=== PATIENT | female | born 1940 | race Caucasian/White ===

== ENCOUNTER 2017-01-31 05:40 | Outpatient (CLI) | payer MEDICARE, MEDICAID ==
[~2017-01-31] VITALS: Ht 172.7 cm; Wt 68.0 kg
[~2017-01-31 05:40] MED LIST: ASPI-586 PO; CARV25TA PO; L.AC1CAP6 PO; OXYC-197 PO; PANT40TA3 PO; SPIR25TA3 PO; SUCR1TAB PO; TIZA4TAB3 PO
[2017-01-31] MEDS ORDERED: CHOL200025 PO (10:16)
[2017-01-31] MEDS ORDERED: CNC1KV IJ (10:16)
[2017-01-31] MEDS ORDERED: MULT-618 PO (10:16)
[2017-01-31] MEDS ORDERED: CARV25TA PO (10:16)
[2017-01-31] MEDS ORDERED: ATOR20TA66 PO (10:16)
== END 2017-01-31 10:25 ==
LOC: PREOP 05:40
PROVIDERS: ATTEND Surgery
DX: Z01.818 Encounter for other preprocedural examination (principal); R10.13 Epigastric pain; Z12.11 Encounter for screening for malignant neoplasm of colon; Z87.11 Personal history of peptic ulcer disease

== ENCOUNTER 2017-02-04 10:16 | Day surgery (SDC) | payer MEDICARE, MEDICAID ==
[~2017-02-04] VITALS: Ht 172.7 cm; Wt 68.0 kg
[~2017-02-04 10:16] MED LIST changes: +ATOR20TA66 PO; +CHOL200025 PO; +CNC1KV IJ; +MULT-618 PO
[2017-02-04] MEDS ORDERED: MIDAZOLAM 2 MG/2 ML (VERSED) VIAL IVP PRN (10:30)
[2017-02-04] MEDS ORDERED: NS IV 500 ML 500 ML IV ONE (10:30)
[2017-02-04] MEDS ORDERED: NS IV 500 ML 500 ML ONE (10:32)
[2017-02-04 10:50] VITALS: BP 106/55
[2017-02-04] MEDS ORDERED: fentaNYL INJECTION 100 MCG/2 ML AMP ONE ×2 (13:27)
[2017-02-04] MEDS ORDERED: MIDAZOLAM 2 MG/2 ML (VERSED) VIAL ONE ×4 (13:28)
[2017-02-04] MEDS ORDERED: HURRICAINE EXT TUBE (BENZOCAINE) ONE (13:28)
[2017-02-04] MEDS: fentaNYL INJECTION 100 MCG/2 ML AMP IVP PRN ×2 (13:43→13:51)
--- NOTE | 2017-02-04 14:13 | Conscious Sedation/ASA ---
Conscious Sedation Pre-Proced Time Reviewed: 10:45 ASA Class: 2 Airway Mallampati Classification: ([place] appropriate class) I. II. III, IV Lungs Heart ASA score ASA 1: a normal healthy patient ASA 2: a patient with a mild systemic disease (mid diabetes, controlled hypertension, obesity ASA 3: a patient with a severe systemic disease that limits activity (angina , COPD, prior Myocardial infarction) ASA 4: a patient with an incapacitating disease that is a constant threat to life (CHF, renal failure) ASA 5: a moribund patient not expected to survive 24 hrs. (ruptured aneurysm) ASA 6: a declared brain patient whose organs are being harvested. For emergent operations, add the letter E after the classification Grade 1 Sedation Plan: Discussed options with patient/fam Note The patient is an appropriate candidate to undergo the planned procedure, sedation, and anesthesia. The patient immediately re-assessed prior to indication. GIORGI AARON MD Feb 04, 2017 2:13 pm
[2017-02-04] MEDS ORDERED: HURRICAINE EXT TUBE (BENZOCAINE) XX ONE (14:15)
--- NOTE | 2017-02-04 14:16 | Endo Procedure Record ---
Endo Procedure Report Date of Procedure Feb 04, 2017 Surgeon (s) GIORGI AARON MD Post Procedure/Op Diagnosis EGD: Grade 2 esophagitis. Antral erosions. Duodenitis Colonoscopy: Normal Procedure Performed EGD with antral biopsy\ Colonoscopy to cecum Description of Procedure Anesthesia Type: Conscious Sedation Specimen(s) collected/removed none Description of the Procedure indication for procedures: This lady came in for an upper endoscopy to investigate epigastric pain and colonoscopy to evaluate new onset of increasing constipation. Informed consent was obtained after reviewing the procedures in detail. Description of procedures: EGD: She was placed in left lateral decubitus position and her vital signs were monitored. Conscious sedation was achieved using Versed and fentanyl. The flexible gastroscope was introduced down the esophagus, past the stomach, into the proximal duodenum Findings: Esophagus: Grade 2 esophagitis. Stomach: Multiple shallow erosions were found at the antrum. Biopsy for H. pylori was obtained. Duodenum: Changes of duodenitis were found along the first part, the second portion be normal She tolerated the procedure well and was turned around in preparation for colonoscopy. Impression: Epigastric pain. Esophagitis, gastric erosions and duodenitis. Helicobacter status pending. Colonoscopy: Digital rectal examination was unremarkable. The colonoscope was then introduced into the rectum and advanced all the way up to the cecum. The quality of bowel preparation was excellent. The scope was then withdrawn slowly and the mucosa examined in a systematic fashion. There was no abnormality She tolerated the procedures well and was taken back to the nursing area in a stable condition. Impression: New onset of constipation. Normal colonoscopy GIORGI AARON MD Feb 04, 2017 2:16 pm
[2017-02-04] MEDS ORDERED: PANT40TA2 PO (14:17)
--- NOTE | 2017-02-04 14:18 | Discharge Inst-Simple/Standard ---
Discharge Inst-Standard Discharge Medications New, Converted or Re-Newed RX: RX on Chart Patient Instructions/Follow Up Plan of Care/Instructions/FU: follow-up with me in [place] in about a month. To avoid nonsteroidals Activity as Tolerated: Yes Discharge Diet: No Restrictions GIORGI AARON MD Feb 04, 2017 2:18 pm
[2017-02-04 14:25] VITALS: BP 103/62
[2017-02-04 14:55] VITALS: BP 99/61
[2017-02-04 15:33] VITALS: BP 99/61
== END 2017-02-04 15:33 | disposition home or self-care (01) ==
LOC: ENDO 10:16
PROVIDERS: ATTEND Surgery
DX: K21.0 Gastro-esophageal reflux disease with esophagitis (principal); K25.9 Gastric ulcer, unspecified as acute or chronic, without hemorrhage or perforation; K29.80 Duodenitis without bleeding; K59.00 Constipation, unspecified; I10 Essential (primary) hypertension; I25.2 Old myocardial infarction; I25.5 Ischemic cardiomyopathy; F17.210 Nicotine dependence, cigarettes, uncomplicated